=== PATIENT | female | born 1955 | race Caucasian/White ===

== ENCOUNTER → 2017-10-24 08:08 | Outpatient (CLI) | payer OTHER, SELFPAY ==
--- NOTE | 2017-10-24 08:14 | MM_ITS ---
MM Dig screening mamm BI w/CAD CAD Screening ORDERING PHYSICIAN : Tenzin Fregoso PATIENT AGE: 62 years GENDER: Female COMPARISON: Baseline study with no previous for comparison INDICATION: No hormones no new complaints noncontributory family history. TECHNIQUE: Standard CC and MLO images were obtained. R2 CAD reviewed. FINDINGS: Low-density breast bilaterally with no dominant mass nor suspicious calcifications either breast. No architectural distortion No prior study. There are some scattered benign calcifications bilaterally but these appear to be Benign Skin calcifications most evident at the medial right and left breast . Early Vascular calcifications also noted Incidental note that there are some generous subcutaneous superficial veins particularly towards inferior/medial left breast. Overall these within the spectrum normal and not felt to be of significance but are slightly more evident on the left. May benefit from correlation chest abdomen on physical exam to exclude any increased superficial collaterals IMPRESSION: . Baseline mammogram with no areas of significant concern within the breast.. Bilateral follow-up in one year recommended. BI-RADS Category: 1 Negative RECOMMENDED FOLLOW-UP: 1YR - 1 YEAR FOLLOW-UP (A letter has been sent to the patient regarding results of the study.)
[2017-10-24 09:12] LABS: Basophils # 0.1 K/mm3 (0-0.2); Basophils % 0.6 % (0.1-2.0); Eosinophils # 0.1 K/mm3 (0.0-0.4); Eosinophils % 0.6 % (0.1-12.0); Hematocrit 44.1 % (37.0-47.0); Hemoglobin 14.5 g/dL (12.2-16.2); Lymphocytes # 1.2 K/mm3 (0.7-4.5); Lymphocytes % 13.1 K/mm3 (10-50); Mean Corpuscular HGB Conc 32.9 g/dL (31.8-35.4); Mean Platelet Volume 7.6 fl (7.4-10.4); Monocytes # 0.4 K/mm3 (0.1-1.0); Monocytes % 3.8 % (1.7-9.3); Neutrophils # 7.7 K/mm3 (1.8-7.8); Platelet Count 373 K/mm3 (142-424); Red Blood Count 5.01 M/mm3 (4.20-5.40); Red Cell Distribution Width 12.7 % (11.5-17.5); White Blood Count 9.4 K/mm3 (4.8-10.8)
[2017-10-24 09:36] LABS: Alanine Aminotransferase 19 U/L (12-78); Albumin Level 3.9 gm/dL (3.4-5.0); Alkaline Phosphatase 142 U/L (46-116); Anion Gap 12.4 mEq/L (5-15); Aspartate Amino Transferase 4 U/L (15-37); Bilirubin,Direct 0.1 mg/dL (0.0-0.2); Bilirubin,Total 0.3 mg/dL (0.2-1.0); Blood Urea Nitrogen 18 mg/dL (7-18); Carbon Dioxide 28 mmol/L (21.0-32.0); Chloride 105 mmol/L (98-107); Chol/HDL Ratio 2.5 (1-3.5); Cholesterol 161 mg/dL (140-200); Creatinine,Serum 0.96 mg/dL (0.55-1.02); Estimated Glomerular Filt Rate 59 ml/min (>60); Free Thyroxine Index 3.7 ug/dL (5.93-13.13); GFR (African American) 71 ML/MIN (>60); Glucose 119 mg/dL (74-106); HDL Cholesterol 65 mg/dL (29-89); LDL Cholesterol 87 mg/dL (0-130); Potassium 4.4 mmoL/L (3.5-5.1); Sodium 141 mmol/L (136-145); T4 (Thyroxine) 10.6 ug/dl (4.7-13.3); Thyroid Stimulating Hormone 1.46 uIU/ml (0.358-3.740); Total Protein,Serum 8.1 gm/dL (6.4-8.2); Triglycerides 43 mg/dL (30-200); Triiodothryronine (T3) Uptake 35 % (31-39); VLDL Cholesterol 9 mg/dL (0-40)
[2017-10-24 19:18] LABS: Hemoglobin A1C 5.3 % (0.0-7.0)
== END ==
PROVIDERS: Internal Medicine Cardiovascular Disease; PCP Nurse Practitioner Family; Visit Provider Nurse Practitioner Family
DX: Z12.31 Encounter for screening mammogram for malignant neoplasm of breast (principal); Z80.1 Family history of malignant neoplasm of trachea, bronchus and lung; I10 Essential (primary) hypertension; R94.31 Abnormal electrocardiogram [ECG] [EKG]; R01.1 Cardiac murmur, unspecified; R09.89 Other specified symptoms and signs involving the circulatory and respiratory systems; R42 Dizziness and giddiness
CPT/HCPCS: 36415; 77067; 80048; 80061; 80076; 83036; 84436; 84443; 84479; 85025

== ENCOUNTER → 2017-11-03 06:33 | Outpatient (CLI) | payer OTHER, SELFPAY ==
--- NOTE | 2017-11-03 06:36 | CI_ITS ---
Cerebrovascular Exam Indications: 785.9 Bruit. IMPRESSIONS 1. The bilateral vertebral arteries are patent with normal antegrade flow. 2. Study suggests less than 20% stenosis involving the right internal carotid artery and the left internal carotid artery. History: Risk factors: Current tobacco use. Hypertension. Carotid duplex study. Complete study and Doppler flow study including spectral analysis, color and luciano scale imaging. Height: Height: 157.5cm. Height: 62in. Weight: Weight: 81.6kg. Weight: 179.6lb. Body mass index: BMI: 32.9kg/m^2. Body surface area: BSA: 1.92m^2. Location: Vascular laboratory. Patient status: Outpatient. Tables: Arterial flow: + +--------+--------+ Location V sys V ed + +--------+--------+ Right CCA - proximal 67.6cm/s 18.1cm/s + +--------+--------+ Right CCA - distal 63.6cm/s 13.4cm/s + +--------+--------+ Right ECA 119cm/s -------- + +--------+--------+ Right ICA - proximal 57.4cm/s 17.3cm/s + +--------+--------+ Right ICA - mid 103cm/s 25.1cm/s + +--------+--------+ Right ICA - distal 66cm/s 29.9cm/s + +--------+--------+ Right vertebral 44cm/s -------- + +--------+--------+ Left CCA - proximal 78.6cm/s 21.2cm/s + +--------+--------+ Left CCA - distal 63.6cm/s 22.8cm/s + +--------+--------+ Left ECA 97.4cm/s 99cm/s + +--------+--------+ Left ICA - proximal 44cm/s 18.9cm/s + +--------+--------+ Left ICA - mid 77cm/s 21.2cm/s + +--------+--------+ Left ICA - distal 81.7cm/s 23.6cm/s + +--------+--------+ Left vertebral 24.4cm/s -------- + +--------+--------+ Velocity ratios: + + + + + + Right, V sys Right, V ed Left, V sys Left, V ed + + + + + + Max ICA/dist CCA 1.62 2.23 1.28 1.04 + + + + + + (Report amended ) Electronically signed by: Bill Khanna [id number]
--- NOTE | 2017-11-03 06:36 | NM_ITS ---
CARDIOLITE SPECT MYOCARDIAL PERFUSION SCAN, REST AND STRESS: EXERCISE STRESS [facility] REVIEW QGS EF AND WALL MOTION EVALUATION: QPS - PERFUSION EVALUATION HISTORY: HTN, Tobacco use DOSE: 10.62 mCi technetium 99m mibi intravenously at rest followed by 32.4 mCi technetium 99m mibi following the intravenous ministration of 0.4 mg of Lexiscan. Resting blood pressure is 153/69. Stress blood pressure 114/60. FINDINGS: Ejection fraction is calculated to be 67%. Stress images reveal decreased activity in the anterior wall while rest images reveal uniform myocardial activity IMPRESSION: Reversible ischemia in the anterior wall with normal ejection fraction and normal wall motion. This is a high risk abnormal stress test
--- NOTE | 2017-11-03 06:55 | CA_ITS ---
PROCEDURE: 2-D M-mode and color Doppler study INDICATIONS FOR THE TEST: Chest pain COPD Heart Murmur+ Tobacco Smoking+ Palpitations Fatigue Syncope Edema Hypertension+Diabetes Mellitus Rheumatic Fever SOB+BURGOS Obesity Hyperlipidemia Family History HD Additional History PATIENT INFORMATION HEIGHT: 62 WEIGHT:180 GENDER: Female B/P: 2-D/M-MODE INTERPRETATION: 2-D MEASUREMENTS OBSERVED VALUES IN CMS Right Ventricular Dimension (RVDd) 2.3 Interventricular Septum (Thickness)(IVsd) 1.6 Left Ventricular Internal Dimensions(LVIDd) 4.0 Left Ventricular Posterior Wall (Thickness)(LVPWd) 1.1 Aortic Root 3.2 Aortic Cusp Separation 2.1 Left Atrial Dimensions (LAD) 3.2 2D 1. Left atrium is mildly enlarged, left ventricle is normal size, there is mild concentric left ventricular hypertrophy, visually estimated ejection fraction 55% with no obvious regional wall motion abnormality. 2. The right atrium and right ventricle are mildly enlarged with normal contractility. 3. The aortic valve is minimally thickened and fibrosed. 4. The mitral and tricuspid valve leaflets are minimally thickened. 5. The pulmonic valve is poorly visualized. 6. No significant pericardial effusion noted. DOPPLER INTERROGATION: Doppler interrogation of the aortic, mitral and tricuspid valvular presence of mild mitral and tricuspid regurgitation, tricuspid and jet velocity is insufficient for calculation of the right ventricular systolic pressure, grade 1 diastolic dysfunction seen without tissue Doppler evidence of raised left atrial pressure. CONCLUSION: 1. Mildly enlarged left atrium, normal left ventricular size, mild concentric left ventricular hypertrophy, visually estimated ejection fraction 55% with no obvious regional wall motion abnormality, grade 1 diastolic dysfunction seen without tissue Doppler evidence of raised left atrial pressure. 2. Thickened and calcified aortic valve without aortic stenosis aortic insufficiency. 3. Mild mitral and tricuspid regurgitation 5. No significant pericardial effusion noted.
--- NOTE | 2017-11-03 07:03 | HMH.ITSHM ---
BISOPROLOL ASA LOSARTAN
== END ==
PROVIDERS: PCP Nurse Practitioner Family; Visit Provider Internal Medicine
DX: R01.1 Cardiac murmur, unspecified (principal); I10 Essential (primary) hypertension; R94.31 Abnormal electrocardiogram [ECG] [EKG]; R09.89 Other specified symptoms and signs involving the circulatory and respiratory systems; R42 Dizziness and giddiness
CPT/HCPCS: 78452; 93017; 93306; 93880; A9502; J2785

== ENCOUNTER 2017-11-28 08:44 | Day surgery (SDC) | payer OTHER, SELFPAY ==
[2017-11-28] VITALS (13 sets, daily range): BP systolic 87–138; BP diastolic 41–80; PULSE 41–65; RESP 16–20; TEMP 36.6; O2SAT 94–100; BMI 31.2
--- NOTE | 2017-11-28 | IR_ITS ---
CARDIAC CATHETERIZATION DATE OF CATHETERIZATION:11/28/2017 2:47 PM PROCEDURES: 1. Left heart catheterization 2. Left ventriculogram 3. Selective coronary angiogram INDICATION FOR TEST: 1. Abnormal stress test 2. Risk factors for coronary disease 3. Angina pectoris Informed consent was obtained prior to the procedure. COMPLICATIONS: None ESTIMATED BLOOD LOSS: Less than 10 ml. TECHNIQUE: One percent lidocaine used to anesthetize the right anterior aspect of the wrist. The right radial artery was accessed via the Seldinger technique. A 6 Vietnamese sheath was placed in the right radial artery. 2.5 mg of verapamil, 800 mcg of nitroglycerin and 5000 U Heparin were given through the arterial sheath. The trap catheter was also used to perform left heart catheterization and left ventriculography. At the end of the procedure the patient was transferred to the post-op holding area in stable condition for arterial sheath removal. ANGIOGRAPHIC RESULTS: 1. The left main artery normal 2. The left anterior descending artery has proximal 5-10% luminal irregularities with mid vessel 20 and 30% stenoses 3. The circumflex artery is a dominant vessel and has mild 10% luminal irregularities 4. The right coronary artery is a nondominant vessel and has mid vessel 30-40% concentric stenoses with distal 10% stenoses 5. The PATTERSON ventriculogram reveals normal ejection fraction 65% 6. The left ventricular end-diastolic pressure 20 mmHg IMPRESSION: 1. Mild disease in the proximal and mid LAD 2. Moderate disease in the proximal to mid nondominant right coronary artery 3. Normal ejection fraction 4. Mildly elevated LVEDP PLAN: 1. Medical management 2. Risk factor modification 3. LDL less than 55 4. Avoidance of tobacco products
[2017-11-28 10:05] LABS: Basophils % 0.4 % (0.1-2.0); Eosinophils # 0.1 K/mm3 (0.0-0.4); Eosinophils % 1.2 % (0.1-12.0); Hematocrit 43.4 % (37.0-47.0); Hemoglobin 14.3 g/dL (12.2-16.2); Lymphocytes # 1.8 K/mm3 (0.7-4.5); Lymphocytes % 19.8 K/mm3 (10-50); Mean Corpuscular HGB Conc 32.9 g/dL (31.8-35.4); Mean Corpuscular Hemoglobin 29.2 pg (27.0-31.2); Mean Corpuscular Volume 88.9 fl (81-99); Mean Platelet Volume 8.1 fl (7.4-10.4); Monocytes # 0.4 K/mm3 (0.1-1.0); Monocytes % 4.2 % (1.7-9.3); Neutrophils # 6.6 K/mm3 (1.8-7.8); Neutrophils % 74.5 % (37.0-80.0); Platelet Count 366 K/mm3 (142-424); Red Blood Count 4.88 M/mm3 (4.20-5.40); Red Cell Distribution Width 13.4 % (11.5-17.5); White Blood Count 8.9 K/mm3 (4.8-10.8)
[2017-11-28 10:14] LABS: Anion Gap 12.7 mEq/L (5-15); Blood Urea Nitrogen 18 mg/dL (7-18); Carbon Dioxide 28 mmol/L (21.0-32.0); Chloride 104 mmol/L (98-107); Creatinine Clearance Estimated 67 mL/min (0-300); Creatinine,Serum 1.04 mg/dL (0.55-1.02); Estimated Glomerular Filt Rate 53 ml/min (>60); GFR (African American) 65 ML/MIN (>60); Glucose 97 mg/dL (74-106); Potassium 3.7 mmoL/L (3.5-5.1); Sodium 141 mmol/L (136-145)
--- NOTE | 2017-11-28 15:39 | SUR.PHASEII ---
at approximately 1524 pt was transferred upstairs to icu for the remainder of her post op recovery. she is now under the care of cecilia wright rn.
== END 2017-11-28 18:06 | disposition home or self-care (01) ==
LOC: CATHLAB 08:46
PROVIDERS: PCP Nurse Practitioner Family; Visit Provider Internal Medicine
PROC: (CPT 93458; principal; 2017-11-28 08:30)
DX: I25.119 Atherosclerotic heart disease of native coronary artery with unspecified angina pectoris (principal)
CPT/HCPCS: 93458; 80048; 85025; 99152; C1725; C1769; J1644; Q9967

== ENCOUNTER → 2017-12-18 10:49 | Outpatient (CLI) | payer OTHER, SELFPAY ==
[2017-12-18 13:17] LABS: Alanine Aminotransferase 19 U/L (12-78); Albumin Level 4.1 gm/dL (3.4-5.0); Alkaline Phosphatase 128 U/L (46-116); Anion Gap 15.1 mEq/L (5-15); Aspartate Amino Transferase 15 U/L (15-37); Bilirubin,Direct 0.2 mg/dL (0.0-0.2); Bilirubin,Total 0.6 mg/dL (0.2-1.0); Blood Urea Nitrogen 25 mg/dL (7-18); Carbon Dioxide 28 mmol/L (21.0-32.0); Chloride 102 mmol/L (98-107); Chol/HDL Ratio 2.1 (1-3.5); Cholesterol 107 mg/dL (140-200); Creatinine,Serum 1.13 mg/dL (0.55-1.02); Estimated Glomerular Filt Rate 48 ml/min (>60); GFR (African American) 59 ML/MIN (>60); Glucose 104 mg/dL (74-106); HDL Cholesterol 52 mg/dL (29-89); LDL Cholesterol 43 mg/dL (0-130); Potassium 4.1 mmoL/L (3.5-5.1); Sodium 141 mmol/L (136-145); Total Protein,Serum 8.1 gm/dL (6.4-8.2); Triglycerides 62 mg/dL (30-200); VLDL Cholesterol 12 mg/dL (0-40)
== END ==
PROVIDERS: Visit Provider Internal Medicine Cardiovascular Disease
DX: I25.10 Atherosclerotic heart disease of native coronary artery without angina pectoris (principal); I11.9 Hypertensive heart disease without heart failure; R01.1 Cardiac murmur, unspecified; E78.5 Hyperlipidemia, unspecified; F17.200 Nicotine dependence, unspecified, uncomplicated
CPT/HCPCS: 36415; 80048; 80061; 80076

== ENCOUNTER → 2021-03-09 10:40 | Outpatient (CLI) | payer MEDICARE, OTHER, SELFPAY ==
[2021-03-09 13:09] LABS: Alanine Aminotransferase 12 U/L (12-78); Albumin Level 4.4 g/dl (3.5-5.0); Alkaline Phosphatase 129 U/L (38-126); Aspartate Amino Transferase 19 U/L (14-36); Bilirubin,Direct 0.5 mg/dl (0.0-0.4); Bilirubin,Total 0.5 mg/dl (0.2-1.3); Cholesterol 111 mg/dl (140-200); Total Protein,Serum 7.5 g/dl (6.3-8.2); Triglycerides 61 mg/dl (30-150); VLDL Cholesterol 12 mg/dL (0-40)
[2021-03-09 13:10] LABS: Chol/HDL Ratio 1.8 (1-3.5); HDL Cholesterol 61 mg/dl (40-60)
[2021-03-09 13:21] LABS: Direct LDL Cholesterol 43.82 mg/dL (100-129)
== END ==
PROVIDERS: Visit Provider Internal Medicine Cardiovascular Disease
DX: F17.200 Nicotine dependence, unspecified, uncomplicated (principal); I15.9 Secondary hypertension, unspecified; R01.1 Cardiac murmur, unspecified; R09.89 Other specified symptoms and signs involving the circulatory and respiratory systems
CPT/HCPCS: 80061; 80076

== ENCOUNTER → 2021-03-22 11:06 | Outpatient (POV) | payer MEDICARE, OTHER, SELFPAY | PROVIDERS: Visit Provider Audiologist | DX: Z00.00 Encounter for general adult medical examination without abnormal findings (principal) ==

== ENCOUNTER → 2023-03-14 10:26 | Outpatient (CLI) | payer MEDICARE, OTHER, SELFPAY ==
[2023-03-14 11:21] LABS: Alanine Aminotransferase 20 U/L (12-78); Albumin Level 4.2 g/dl (3.5-5.0); Alkaline Phosphatase 133 U/L (38-126); Anion Gap 13.9 mEq/L (5-15); Aspartate Amino Transferase 23 U/L (14-36); Bilirubin,Indirect 0.7 mg/dL (0.0-0.9); Bilirubin,Total 0.7 mg/dl (0.2-1.3); Bilirubin,Unconjugated 0.8 mg/dL (0.0-1.1); Blood Urea Nitrogen 23 mg/dl (7-17); Calcium 9.4 mg/dl (8.4-10.2); Carbon Dioxide 26 mmol/L (22.0-30.0); Chloride 104 mmol/L (98-107); Chol/HDL Ratio 1.8 (1-3.5); Cholesterol 114 mg/dl (140-200); Estimated Glomerular Filt Rate 41 ml/min (>60); GFR (African American) 49 ML/MIN (>60); Glucose 113 mg/dl (74-100); HDL Cholesterol 63 mg/dl (40-60); Magnesium 1.8 mg/dl (1.6-2.3); Potassium 3.9 mmoL/L (3.5-5.1); Sodium 140 mmol/L (136-145); Total Protein,Serum 7.3 g/dl (6.3-8.2); Triglycerides 71 mg/dl (30-150); VLDL Cholesterol 14 mg/dL (0-40)
[2023-03-14 11:38] LABS: Free T4 (Free Thyroxine) 1.36 ng/dl (0.78-2.19)
[2023-03-14 11:55] LABS: Thyroid Stimulating Hormone 1.75 uIU/mL (0.465-4.68)
[2023-03-14 13:39] LABS: Basophils % 0.3 % (0.1-2.0); Eosinophils # 0.2 K/mm3 (0.0-0.4); Eosinophils % 1.8 % (0.1-12.0); Hematocrit 38.1 % (37.0-47.0); Hemoglobin 13.5 g/dL (12.2-16.2); Lymphocytes # 1.7 K/mm3 (0.7-4.5); Lymphocytes % 15.2 % (10-50); Mean Corpuscular HGB Conc 35.4 g/dL (31.8-35.4); Mean Corpuscular Hemoglobin 32.4 pg (27.0-31.2); Mean Corpuscular Volume 91.4 fl (81-99); Mean Platelet Volume 8.7 fl (7.4-10.4); Monocytes # 0.4 K/mm3 (0.1-1.0); Monocytes % 3.5 % (1.7-9.3); Neutrophils # 8.6 K/mm3 (1.8-7.8); Neutrophils % 79.2 % (37.0-80.0); Platelet Count 326 K/mm3 (142-424); Red Blood Count 4.16 M/mm3 (4.20-5.40); Red Cell Distribution Width 13.5 % (11.5-17.5); White Blood Count 10.8 K/mm3 (4.8-10.8)
== END ==
PROVIDERS: PCP Nurse Practitioner Family; Visit Provider Physician Assistant
DX: E78.5 Hyperlipidemia, unspecified (principal); F17.200 Nicotine dependence, unspecified, uncomplicated; I10 Essential (primary) hypertension; I25.10 Atherosclerotic heart disease of native coronary artery without angina pectoris; I51.9 Heart disease, unspecified; I65.29 Occlusion and stenosis of unspecified carotid artery; R01.1 Cardiac murmur, unspecified; R94.31 Abnormal electrocardiogram [ECG] [EKG]; E78.49 Other hyperlipidemia
CPT/HCPCS: 80048; 80061; 80076; 83735; 84439; 84443; 85025

== ENCOUNTER 2023-04-30 16:40 | Emergency (ER) | payer MEDICARE, OTHER, SELFPAY ==
[2023-04-30] VITALS (19 sets, daily range): BP systolic 134–210; BP diastolic 83–124; PULSE 71–95; RESP 16–26; TEMP 36.7; O2SAT 95–100; BMI 33.8
--- NOTE | 2023-04-30 16:50 | XR_ITS ---
PROCEDURE INFORMATION: Exam: XR Left Humerus Exam date and time: 04/30/2023 5:01 PM Age: 67 years old Clinical indication: Injury or trauma; Fall; Dislocation; Shoulder; Left TECHNIQUE: Imaging protocol: Radiologic exam of the left humerus. Views: 2 or more views. COMPARISON: CR XR SHOULDER LT MIN 2V 04/30/2023 4:57 PM FINDINGS: Bones/joints: Anterior shoulder dislocation. Soft tissues: Normal. IMPRESSION: Anterior shoulder dislocation.
--- NOTE | 2023-04-30 16:50 | XR_ITS ---
PROCEDURE INFORMATION: Exam: XR Left Ribs with PA Chest Exam date and time: 04/30/2023 5:05 PM Age: 67 years old Clinical indication: Injury or trauma; Fall; Rib area, left side; Dislocation TECHNIQUE: Imaging protocol: Radiologic exam of the left ribs with PA chest. Views: 3 views COMPARISON: CR XR HUMERUS LT 04/30/2023 5:01 PM FINDINGS: Lungs: Unremarkable. No consolidation. Pleural spaces: Unremarkable. No pleural effusion. No pneumothorax. Heart/Mediastinum: Unremarkable. No cardiomegaly. Bones/joints: Previously described shoulder dislocation again identified. No evidence of acute rib fracture. IMPRESSION: No evidence of acute rib fracture.
--- NOTE | 2023-04-30 16:50 | XR_ITS ---
PROCEDURE INFORMATION: Exam: XR Left Shoulder Exam date and time: 04/30/2023 4:57 PM Age: 67 years old Clinical indication: Injury or trauma; Fall; Dislocation; Shoulder; Left TECHNIQUE: Imaging protocol: Radiologic exam of the left shoulder. Views: 2 or more views. COMPARISON: No relevant prior studies available. FINDINGS: Bones/joints: Anterior shoulder dislocation. No definite fracture identified. Soft tissues: Normal. IMPRESSION: Anterior shoulder dislocation. No definite fracture identified.
--- NOTE | 2023-04-30 17:24 | PC.NURSE ---
pt arrived to room from ct, and family members were brought over by [facility] from [facility]
--- NOTE | 2023-04-30 17:45 | CT_ITS ---
PROCEDURE INFORMATION: Exam: CT Head Without Contrast Exam date and time: 04/30/2023 6:31 PM Age: 67 years old Clinical indication: Injury or trauma; Fall; Blunt trauma (contusions or hematomas); Additional info: Fall head injury TECHNIQUE: Imaging protocol: Computed tomography of the head without contrast. Radiation optimization: All CT scans at this facility use at least one of these dose optimization techniques: automated exposure control; mA and/or kV adjustment per patient size (includes targeted exams where dose is matched to clinical indication); or iterative reconstruction. REPORTING DATA: Count of CT and Cardiac NM exams in prior 12 months: This patient has received 0 known CTs and 0 known cardiac nuclear medicine studies in the 12 months prior to the current study. COMPARISON: No relevant prior studies available. FINDINGS: Brain: Normal. No hemorrhage. Unremarkable white matter. No mass effect. Cerebral ventricles: 4th ventricle normal in size. Marked dilatation of the lateral ventricles including the temporal and occipital horns as well as the 3rd ventricle. Paranasal sinuses: Left maxillary sinus retention cyst versus polyp. Mastoid air cells: Visualized mastoid air cells are well aerated. Auditory system: Left-sided otitis media Bones/joints: Unremarkable. No acute fracture. Soft tissues: Unremarkable. IMPRESSION: 1. Findings compatible with obstructive hydrocephalus. 2. If the findings are not known recommend follow-up with magnetic resonance imaging with contrast to further e Ree valuation.
--- NOTE | 2023-04-30 17:45 | CT_ITS ---
PROCEDURE INFORMATION: Exam: CT Cervical Spine Without Contrast Exam date and time: 04/30/2023 6:31 PM Age: 67 years old Clinical indication: Injury or trauma; Fall; Blunt trauma; Additional info: Fall injury TECHNIQUE: Imaging protocol: Computed tomography of the cervical spine without contrast. Radiation optimization: All CT scans at this facility use at least one of these dose optimization techniques: automated exposure control; mA and/or kV adjustment per patient size (includes targeted exams where dose is matched to clinical indication); or iterative reconstruction. REPORTING DATA: Count of CT and Cardiac NM exams in prior 12 months: This patient has received 0 known CTs and 0 known cardiac nuclear medicine studies in the 12 months prior to the current study. COMPARISON: US CA carotid duplex BI 11/03/2017 10:24 AM FINDINGS: Bones/joints: Mild scoliosis of the cervical spine convexity to the left. Findings may be exaggerated due to patient positioning. Multilevel hypertrophic facet changes. Lungs: Lung apices are normal. Soft tissues: Unremarkable. IMPRESSION: No evidence of acute abnormality.
--- NOTE | 2023-04-30 17:46 | HMH.EDGENADL ---
Discharge Plan Disposition Patient Disposition: Xfer Other Prescriptions Prescriptions: No Action aspirin [Adult Aspirin Regimen] 81 mg tablet,delayed release (DR/EC) 81 mg PO DAILY Qty: 100 3RF atorvastatin 40 mg tablet See Rx Instructions .ROUTE .COMPLEX Qty: 90 3RF Dose Instruction: Take 1 tablet by mouth once daily Rx Instructions: Take 1 tablet by mouth once daily bisoprolol fumarate 5 mg tablet See Rx Instructions .ROUTE .COMPLEX Qty: 90 3RF Dose Instruction: Take 1 tablet by mouth once daily Rx Instructions: Take 1 tablet by mouth once daily losartan-hydrochlorothiazide 100-25 mg tablet See Rx Instructions .ROUTE .COMPLEX Qty: 90 3RF Dose Instruction: Take 1 tablet by mouth once daily Rx Instructions: Take 1 tablet by mouth once daily Referrals Follow up/Referrals: Tenzin Fregoso APRN [Primary Care Provider] - See instructions Clinical Impressions Clinical Impression: Anterior dislocation of left shoulder, Periorbital ecchymosis of left eye, Minor head injury, Fall, Hill Sachs deformity, Closed fracture of greater tuberosity of humerus, Obstructive hydrocephalus Instructions Patient Instructions: DI for Moderate Sedation Discharge ED Provider: Richy Gonzalez General Adult HPI General Chief complaint: Fall Stated complaint: AO fall 04/30, left arm/shoulder pain Time Seen by Provider: 04/30/23 17:40 Mode of Arrival: Wheelchair Source of Information: Patient Limitations: No Limitations Description of Symptoms (Recalled from ER Triage Doc. by RN): Patient states that she fell yesterday hitting the back of a recliner. Complaint of left shoulder pain and bruising to the left side of her head. Per [facility] left shoulder is dislocated. History of Present Illness HPI narrative: Patient is a 67-year-old female who had a mechanical fall striking her face and her left shoulder presenting with left shoulder pain and headache. She was sitting in the waiting room waiting to be seen by the [facility] and x-rays were performed showing an anterior shoulder dislocation and she was transported into the emergency department at that time. Patient denies any upper extremity weakness or paresthesias or change in temperature sensation. She denies any changes in consciousness or being on any anticoagulants or antiplatelet agents other than aspirin. Denies injuries elsewhere denies any neck pain. No chest abdomen pelvis or other long bone pain. Related Data Previous Rx's Medication Instructions Recorded aspirin 81 mg tablet,delayed 81 mg PO DAILY #100 tabs 03/14/23 release (Adult Aspirin Regimen) atorvastatin 40 mg tablet See Rx Instructions .Route 03/14/23 .COMPLEX #90 tabs bisoprolol fumarate 5 mg tablet See Rx Instructions .Route 03/14/23 .COMPLEX #90 tabs losartan 100 See Rx Instructions .Route 03/14/23 mg-hydrochlorothiazide 25 mg tablet .COMPLEX #90 tabs Allergies Allergy/AdvReac Type Severity Reaction Status Date / Time No Known Allergies Allergy Verified 03/14/23 09:57 [facility] Disclaimer: The information contained in this section may have been updated after the patient was seen, as this information can be updated by other users. Medical History Abnormal ECG Bilateral carotid bruits CAD (coronary artery disease) Carotid artery stenosis Carotid bruit Diastolic dysfunction Dyspnea HLD (hyperlipidemia) Hypertension Systolic murmur Tobacco dependence syndrome Social History (Updated 03/14/23 @ 10:01 by Janine Wells LPN) Smoking Status: Current every day smoker tobacco type: cigarettes packs per day: 1 years smoked: 50 alcohol intake: never counseling provided: provider counseling substance use type: denies use current occupational status: unemployed Travel in the last 8 weeks: Inside the [place] household members: family ROS Obtained: Yes All systems r
--- NOTE | 2023-04-30 18:14 | PC.NURSE ---
post reduction xray being performed at [facility]
--- NOTE | 2023-04-30 18:22 | XR_ITS ---
PROCEDURE INFORMATION: Exam: XR Left Shoulder Exam date and time: 04/30/2023 5:58 PM Age: 67 years old Clinical indication: Pain; Shoulder; Left; Additional info: Post-reduction TECHNIQUE: Imaging protocol: Radiologic exam of the left shoulder. Views: 1 view. COMPARISON: CR XR SHOULDER LT MIN 2V 04/30/2023 4:57 PM FINDINGS: Bones/joints: Evaluation is limited without the benefit of orthogonal view. There is anterior glenohumeral dislocation again noted. Soft tissues: Normal. IMPRESSION: Persistent left anterior glenohumeral dislocation.
--- NOTE | 2023-04-30 18:25 | CT_ITS ---
PROCEDURE INFORMATION: Exam: CT Left Upper Extremity Without Contrast, Shoulder Exam date and time: 04/30/2023 6:34 PM Age: 67 years old Clinical indication: Other: Dislocation; Additional info: Dislocation, unable to stay reduced TECHNIQUE: Imaging protocol: Computed tomography of the left upper extremity without contrast. Exam focused on the shoulder. 3D rendering (Not supervised by radiologist): MIP and/or 3D reconstructed images were created by the technologist. Radiation optimization: All CT scans at this facility use at least one of these dose optimization techniques: automated exposure control; mA and/or kV adjustment per patient size (includes targeted exams where dose is matched to clinical indication); or iterative reconstruction. REPORTING DATA: Count of CT and Cardiac NM exams in prior 12 months: This patient has received 0 known CTs and 0 known cardiac nuclear medicine studies in the 12 months prior to the current study. COMPARISON: CR XR SHOULDER LT 1V 04/30/2023 5:58 PM FINDINGS: Bones/joints: There is a comminuted fracture dislocation of the left humeral head with anterior displacement of the humeral head and a large Hill-Sachs deformity (image 23 series 5). Multiple fracture fragments are seen. There is a fracture defect of the anterior humeral head. Several of the fracture fragments appear well corticated suggesting chronic injury. There is flattening of the glenoid. Soft tissues: Normal. Lymph nodes: There are calcified mediastinal lymph nodes likely reflecting prior granulomatous disease. Other findings: There is mild coronary atherosclerotic disease/calcification. IMPRESSION: Anterior dislocation and fracture of the humeral head with a pronounced Hill-Sachs deformity as well as an anterior humeral head fracture.. Multiple fracture fragments adjacent to the humeral head appear well corticated likely reflecting an acute on chronic injury. Flattening of the glenoid suggesting some level of dysplasia.
--- NOTE | 2023-04-30 18:53 | PC.NURSE ---
Nurse Hernández at [facility]
--- NOTE | 2023-04-30 18:57 | PC.NURSE ---
Images power-shared to [facility]; and having disc burned with images
--- NOTE | 2023-04-30 18:57 | PC.NURSE ---
calling [facility] for orth
--- NOTE | 2023-04-30 19:08 | PC.NURSE ---
1750 Room and patient prepared with monitor, iv fluids, airway supplies, and meds at beside 1754 ER MD in room 1755- time out performed 175 50mg ketamine given 175 ER MD attempt to put left shoulder in place, xray at bedside for post films, shoulder still out 180 50 mg Ketamine given 180 ER MD attempt to place shoulder again 1810 post xray, shoulder still out of place 181 25 mg ketamine given 181 25mg ketamine given 181 ER MD tried again to place shoulder 1820 post xray showed shoulder still out of place 182 ER MD order shoulder CT and patient transported to radiology with monitor, o2, and two rns, pt is beginning to arouse 1840 CT scans are complete and patient is back in room and on the monitor, ALOx3 breathing on room air 1900 ER Md on the phone with ortho and pt is back to baseline
--- NOTE | 2023-04-30 19:14 | PC.NURSE ---
on the phone with transfer center and Doc.
--- NOTE | 2023-04-30 19:34 | PC.NURSE ---
Called [facility] for possible transfer. Dr Gonzalez spoke to Roxane WATERS and he has accepted the pt for transfer. CR
== END 2023-04-30 20:20 | disposition other institution (70) ==
LOC: UTC 16:44 → ER 17:20
PROVIDERS: Emergency Provider Student in an Organized Health Care Education/Training Program; PCP Nurse Practitioner Family
DX: S42.252A Displaced fracture of greater tuberosity of left humerus, initial encounter for closed fracture (principal); S43.015A Anterior dislocation of left humerus, initial encounter; S00.12XA Contusion of left eyelid and periocular area, initial encounter; G91.1 Obstructive hydrocephalus; I25.10 Atherosclerotic heart disease of native coronary artery without angina pectoris; I65.29 Occlusion and stenosis of unspecified carotid artery; E78.5 Hyperlipidemia, unspecified; I10 Essential (primary) hypertension; R01.1 Cardiac murmur, unspecified; F17.210 Nicotine dependence, cigarettes, uncomplicated; W07.XXXA Fall from chair, initial encounter
CPT/HCPCS: 70450; 71101; 72125; 73020; 73030; 73060; 73200; 99152; 99285; 99291

== ENCOUNTER 2023-07-16 10:58 | Emergency (ER) | payer MEDICARE, OTHER, SELFPAY ==
[2023-07-16 10:58] VITALS: BP 138/85; PULSE 63; RESP 18; TEMP 36.9; O2SAT 94; BMI 33.8
--- NOTE | 2023-07-16 11:25 | EXP.UTC ---
Discharge Plan Disposition Patient Disposition: Home, Self-Care Condition: Good Prescriptions Prescriptions: New azithromycin [Zithromax] 250 mg tablet 250 mg PO UD DOSE PK Qty: 6 0RF Rx Instructions: Take two (2) tablets today, then one (1) tablet days #2 thru #5 benzonatate [benzonatate] 100 mg capsule 100 mg PO TIDP PRN (Reason: Cough) Qty: 30 0RF prednisone 10 mg tablet 10 mg PO DIRECTED 9 Days Qty: 21 0RF Rx Instructions: Take 4 tablets daily for 3 days, then take 2 tablets daily for 3 days, then take 1 tablet daily for 3 days, then stop. No Action aspirin [Adult Aspirin Regimen] 81 mg tablet,delayed release (DR/EC) 81 mg PO DAILY Qty: 100 3RF atorvastatin 40 mg tablet See Rx Instructions .ROUTE .COMPLEX Qty: 90 3RF Dose Instruction: Take 1 tablet by mouth once daily Rx Instructions: Take 1 tablet by mouth once daily bisoprolol fumarate 5 mg tablet See Rx Instructions .ROUTE .COMPLEX Qty: 90 3RF Dose Instruction: Take 1 tablet by mouth once daily Rx Instructions: Take 1 tablet by mouth once daily losartan-hydrochlorothiazide 100-25 mg tablet See Rx Instructions .ROUTE .COMPLEX Qty: 90 3RF Dose Instruction: Take 1 tablet by mouth once daily Rx Instructions: Take 1 tablet by mouth once daily Referrals Follow up/Referrals: Tenzin Fregoso APRN [Primary Care Provider] - See instructions Activity Restrictions/Add. Instructions Additional Instructions/Restrictions: Drink plenty of fluids. Take tylenol or ibuprofen for pain or fever. Take the medications as directed. Follow up with your regular doctor. GO TO THE ER FOR ANY WORSENING SYMPTOMS Clinical Impressions Clinical Impression: Acute bronchitis Instructions Patient Instructions: Acute Bronchitis, DI for Acute Bronchitis Discharge ED Provider: Seb Waite [facility] General Stated complaint: COUGH Time Seen by Provider: 07/16/23 11:25 History of Present Illness Provider Complaint: She states that for the past 5 days she has had sinus congestion and chest congestion. She has a productive cough with yellowish sputum. Related Data Previous Rx's Medication Instructions Recorded aspirin 81 mg tablet,delayed 81 mg PO DAILY #100 tabs 03/14/23 release (Adult Aspirin Regimen) atorvastatin 40 mg tablet See Rx Instructions .Route 03/14/23 .COMPLEX #90 tabs bisoprolol fumarate 5 mg tablet See Rx Instructions .Route 03/14/23 .COMPLEX #90 tabs losartan 100 See Rx Instructions .Route 03/14/23 mg-hydrochlorothiazide 25 mg tablet .COMPLEX #90 tabs azithromycin 250 mg tablet 250 mg PO UD DOSE PK #6 tabs 07/16/23 (Zithromax) benzonatate 100 mg capsule 100 mg PO TIDP PRN Cough #30 caps 07/16/23 prednisone 10 mg tablet 10 mg PO DIRECTED 9 days #21 07/16/23 tabs Allergies Allergy/AdvReac Type Severity Reaction Status Date / Time No Known Allergies Allergy Verified 03/14/23 09:57 [facility] Disclaimer: The information contained in this section may have been updated after the patient was seen, as this information can be updated by other users. Medical History Abnormal ECG Bilateral carotid bruits CAD (coronary artery disease) Carotid artery stenosis Carotid bruit Diastolic dysfunction Dyspnea HLD (hyperlipidemia) Hypertension Systolic murmur Tobacco dependence syndrome Social History (Updated 03/14/23 @ 10:01 by Janine Wells LPN) Smoking Status: Current every day smoker tobacco type: cigarettes packs per day: 1 years smoked: 50 alcohol intake: never counseling provided: provider counseling substance use type: denies use current occupational status: unemployed Travel in the last 8 weeks: Inside the [place] household members: family ROS Obtained: Yes All systems reviewed & no additional complaints except as documented Constitutional
[2023-07-16 12:23] VITALS: BP 138/85; PULSE 63; RESP 18; TEMP 36.9; O2SAT 94
== END 2023-07-16 12:25 | disposition home or self-care (01) ==
PROVIDERS: Emergency Provider Nurse Practitioner Family; PCP Nurse Practitioner Family
DX: J20.9 Acute bronchitis, unspecified (principal); R05.9 Cough, unspecified; R09.89 Other specified symptoms and signs involving the circulatory and respiratory systems; R09.81 Nasal congestion; F17.210 Nicotine dependence, cigarettes, uncomplicated; I25.10 Atherosclerotic heart disease of native coronary artery without angina pectoris; I11.9 Hypertensive heart disease without heart failure; E78.5 Hyperlipidemia, unspecified; I65.29 Occlusion and stenosis of unspecified carotid artery
CPT/HCPCS: 87635; 99204; 99212; G0463

== ENCOUNTER 2024-03-15 09:45 | Outpatient (CLI) | payer MEDICARE, OTHER, SELFPAY ==
[2024-03-15 10:12] LABS: Basophils # 0.1 K/mm3 (0-0.2); Basophils % 0.4 % (0.1-2.0); Eosinophils # 0.1 K/mm3 (0.0-0.4); Eosinophils % 0.4 % (0.1-12.0); Hematocrit 38.5 % (37.0-47.0); Hemoglobin 12.9 g/dL (12.2-16.2); Lymphocytes # 1.3 K/mm3 (0.7-4.5); Lymphocytes % 10.3 % (10-50); Mean Corpuscular HGB Conc 33.4 g/dL (31.8-35.4); Mean Corpuscular Hemoglobin 31.1 pg (27.0-31.2); Mean Corpuscular Volume 93.1 fl (81-99); Mean Platelet Volume 8.4 fl (7.4-10.4); Monocytes # 0.5 K/mm3 (0.1-1.0); Monocytes % 3.6 % (1.7-9.3); Neutrophils # 10.7 K/mm3 (1.8-7.8); Neutrophils % 85.4 % (37.0-80.0); Platelet Count 376 K/mm3 (142-424); Red Blood Count 4.14 M/mm3 (4.20-5.40); Red Cell Distribution Width 14.5 % (11.5-17.5); White Blood Count 12.5 K/mm3 (4.8-10.8)
[2024-03-15 10:36] LABS: MANUAL DIFFERENTIAL MANUAL DIFFERENTIAL (MANUAL DIFF)
[2024-03-15 10:50] LABS: Alanine Aminotransferase 23 U/L (12-78); Alkaline Phosphatase 120 U/L (38-126); Anion Gap 13.4 mEq/L (5-15); Aspartate Amino Transferase 28 U/L (14-36); Bilirubin,Indirect 0.6 mg/dL (0.0-0.9); Bilirubin,Total 0.6 mg/dl (0.2-1.3); Bilirubin,Unconjugated 0.7 mg/dL (0.0-1.1); Blood Urea Nitrogen 28 mg/dl (7-17); Calcium 9.7 mg/dl (8.4-10.2); Carbon Dioxide 26 mmol/L (22.0-30.0); Chloride 104 mmol/L (98-107); Chol/HDL Ratio 2.2 (1-3.5); Cholesterol 89 mg/dl (140-200); Estimated Glomerular Filt Rate 30 ml/min (>60); GFR (African American) 36 ML/MIN (>60); Glucose 120 mg/dl (74-100); HDL Cholesterol 40 mg/dl (40-60); Magnesium 1.5 mg/dl (1.6-2.3); Potassium 3.4 mmoL/L (3.5-5.1); Sodium 140 mmol/L (136-145); Total Protein,Serum 6.9 g/dl (6.3-8.2); Triglycerides 86 mg/dl (30-150); VLDL Cholesterol 17 mg/dL (0-40)
[2024-03-15 11:07] LABS: Direct LDL Cholesterol < 30.00 mg/dL (100-129); Free T4 (Free Thyroxine) 1.74 ng/dl (0.78-2.19)
[2024-03-15 11:21] LABS: Thyroid Stimulating Hormone 1.39 uIU/mL (0.465-4.68)
[2024-03-15 15:05] LABS: Lymphocytes % 8 % (10-50); Monocytes % 4 % (2-9); Neutrophils % 88 % (42-76); Platelet Estimate Normal; RBC Morphology Normal; Total Cells Counted 100
== END 2024-03-15 23:59 | disposition home or self-care (01) ==
LOC: LAB 14:43
PROVIDERS: PCP Nurse Practitioner Family; Visit Provider Nurse Practitioner
DX: E78.49 Other hyperlipidemia (principal); I25.10 Atherosclerotic heart disease of native coronary artery without angina pectoris; F17.200 Nicotine dependence, unspecified, uncomplicated; I15.9 Secondary hypertension, unspecified; I34.0 Nonrheumatic mitral (valve) insufficiency; I07.1 Rheumatic tricuspid insufficiency
CPT/HCPCS: 36415; 80048; 80061; 80076; 83735; 84439; 84443; 85007; 85025; 85027